=== PATIENT | female | born 1960 | race African-American/Black ===

== ENCOUNTER 2022-09-19 16:26 | Emergency (ER) | payer OTHER ==
[~2022-09-19] VITALS: Ht 162.6 cm; Wt 78.9 kg
[2022-09-19] MEDS ORDERED: IBUPROFEN 600 MG TABLET ONE (16:40)
[2022-09-19] MEDS ORDERED: IBUPROFEN 600 MG TABLET PO ONE (16:45)
[2022-09-19] MEDS ORDERED: IV NORMAL SALINE 1000 ML BAG IV ONE (16:45)
[2022-09-19 16:48] LABS: HEMATOCRIT 39.5 % (31.2-41.9); MEAN CORPUSCULAR VOLUME 90.6 fL (75.5-95.3); PLATELET COUNT (AUTO) 229 K/uL (179-408)
[2022-09-19 16:54] LABS: CREATININE 1.1 mg/dL (0.6-1.3); POTASSIUM 3.7 mmol/L (3.5-5.1)
[2022-09-19 17:00] LABS: BILIRUBIN,DIRECT 0.1 mg/dL (0.0-0.2); BILIRUBIN,TOTAL 0.3 mg/dL (0.2-1.0)
--- NOTE | 2022-09-19 17:37 | NUR ---
PT IS IN ROOM #3. DR MCKEON EVALUATED THE PT.
--- NOTE | 2022-09-19 18:59 | NUR ---
PT WAS D/C'd TO HOME. D/C INSTRUCTIONS GIVEN TO THE PT BY DR MCKEON.
[2022-09-19 19:01] VITALS: BP 141/84
== END 2022-09-19 19:02 | disposition home or self-care (01) ==
LOC: ER 16:28
DX: U07.1 COVID-19 (principal); R00.0 Tachycardia, unspecified; B34.9 Viral infection, unspecified; R50.9 Fever, unspecified
CPT/HCPCS: 99283; 96360; 87426; 80076; 80048; 85025; 86403; 83605; J7040; A4663